=== PATIENT | female | born 1940 | race Two or more races ===

== ENCOUNTER 2017-05-23 07:15 | Outpatient (CLI) | payer OTHER ==
[~2017-05-23 07:15] MED LIST: DIOVAN160 M1 PO; DIOVAN320 MG; SIMVASTATIN5 MG; VERAPAMIL ER200 MG
== END 2017-05-23 08:08 | disposition home or self-care (01) ==
LOC: NUCLEAR 07:15
DX: I48.2 Chronic atrial fibrillation (principal)

== ENCOUNTER 2017-05-28 12:40 | Emergency (ER) | payer OTHER ==
[~2017-05-28] VITALS: Ht 167.6 cm; Wt 95.7 kg
[2017-05-28] MEDS ORDERED: VERAPAMIL ER120 MG (12:56)
[2017-05-28] MEDS ORDERED: VALSARTAN-HCTZ1 EACH (12:56)
[2017-05-28] MEDS ORDERED: ELIQUIS5 MG (12:57)
[2017-05-28] MEDS ORDERED: PANTOPRAZOLE SO40 MG (12:57)
[2017-05-28] MEDS ORDERED: ATORVASTATIN CA20 MG (12:57)
[2017-05-28] MEDS ORDERED: ISOSORBIDE DINI30 MG (12:58)
[2017-05-28] MEDS ORDERED: CLOPIDOGREL BIS75 MG (12:58)
== END 2017-05-28 15:23 | disposition home or self-care (01) ==
LOC: ER 12:40
DX: R07.89 Other chest pain (principal); R06.02 Shortness of breath; F41.1 Generalized anxiety disorder

== ENCOUNTER 2017-09-09 17:49 | Emergency (ER) | payer OTHER ==
[~2017-09-09] VITALS: Ht 175.3 cm; Wt 74.8 kg
[~2017-09-09 17:49] MED LIST changes: +ATORVASTATIN CA20 MG; +CLOPIDOGREL BIS75 MG; +ELIQUIS5 MG; +ISOSORBIDE DINI30 MG; +PANTOPRAZOLE SO40 MG; +VALSARTAN-HCTZ1 EACH; +VERAPAMIL ER120 MG
== END 2017-09-09 21:53 | disposition home or self-care (01) ==
LOC: ER 17:49 → CPU-OBS 17:54 → ER 21:53
DX: I48.2 Chronic atrial fibrillation (principal); R07.89 Other chest pain

== ENCOUNTER 2017-12-02 00:42 | Emergency (ER) | payer OTHER ==
[~2017-12-02] VITALS: Ht 167.6 cm; Wt 94.3 kg
[2017-12-02] MEDS ORDERED: LIPITOR20 MG (00:52)
[2017-12-02] MEDS ORDERED: OMEPRAZOLE20 MG (00:53)
[2017-12-02] MEDS ORDERED: FAMOTIDINE40 MG (00:53)
[2017-12-02] MEDS ORDERED: ATACAND32 MG (00:54)
[2017-12-02] MEDS ORDERED: PROTONIX20 MG (00:54)
[2017-12-02] MEDS ORDERED: TOPROL XL200 MG (00:54)
[2017-12-02] MEDS ORDERED: CARAFATE1 GM PO (02:32)
== END 2017-12-02 14:34 | disposition home or self-care (01) ==
LOC: ER 00:42
DX: K21.9 Gastro-esophageal reflux disease without esophagitis (principal)

== ENCOUNTER 2018-11-30 08:18 | Emergency (ER) | payer OTHER ==
[~2018-11-30] VITALS: Ht 167.6 cm; Wt 98.0 kg
[~2018-11-30 08:18] MED LIST changes: +ATACAND32 MG; +CARAFATE1 GM PO; +FAMOTIDINE40 MG; +LIPITOR20 MG; +OMEPRAZOLE20 MG; +PROTONIX20 MG; +TOPROL XL200 MG
== END 2018-11-30 12:08 | disposition home or self-care (01) ==
LOC: ER 08:18 → CPU-OBS 08:23 → ER 12:08
DX: I48.91 Unspecified atrial fibrillation (principal); R07.89 Other chest pain; F41.8 Other specified anxiety disorders